=== PATIENT | female | born 1980 | race Caucasian/White ===

== ENCOUNTER 2017-07-30 12:54 | Day surgery (SDC) | payer OTHER ==
[2017-07-27 08:16] VITALS: BMI 19.8
[2017-07-30] MEDS ORDERED: oxyCODONE HCL 5 MG TABLET PO PRN (13:34)
[2017-07-30] MEDS ORDERED: PROMETHAZINE HCL 25 MG/1 ML VIAL IVPUSH PRN (13:34)
[2017-07-30] MEDS ORDERED: ONDANSETRON 4 MG/2 ML VIAL IVPUSH PRN (13:34)
[2017-07-30] MEDS ORDERED: LACTATED RINGERS SOLUTION 1,000 ML IV SCH (13:45)
[2017-07-30] MEDS ORDERED: MIDAZOLAM HCL 2 MG/2 ML SINGLE DOSE VIAL ONE ×2 (14:23)
--- NOTE | 2017-07-30 15:06 | OP ---
Operative Note - Note: Operative Date: 07/30/17 Pre-Operative Diagnosis: R kidney stone Operation: Right ESWL Findings: 7 mm stone in the Right kidney pelvis Post-Operative Diagnosis: Same as Pre-op Surgeon: Abel Mittal Anesthesia: Fractional Operative Report Dictated: Yes
[2017-07-30 16:02] VITALS: TEMP 97.8
[2017-07-30 17:12] VITALS: BP 102/61; PULSE 69
--- NOTE | 2017-07-30 21:37 | OP ---
DATE OF OPERATION: 07/30/2017 PREOPERATIVE DIAGNOSIS: Right renal stone. POSTOPERATIVE DIAGNOSIS: Right renal stone. PROCEDURE: Right extracorporeal shock wave lithotripsy. ATTENDING: Reshma Guerrero MD ANESTHESIA: General. DESCRIPTION OF OPERATION: The patient was brought in the operating room, placed in a supine position on the operating room table. Ultrasonography and fluoroscopy were performed. A 7-mm right renal stone was noted in the renal pelvis. At this point, fractional anesthesia and antibiotics were administered. Extracorporeal shock wave lithotripsy was then performed; 2500 impulses at 20 joules of power were administered to the stone. Excellent fragmentation was noted under real-time ultrasonography and fluoroscopy. There were PVCs noted at a power level of 17. There were some changes seen. The patient will require followup sonogram to evaluate how effective the shockwave lithotripsy was. Patient tolerated the procedure very well. No complications noted. The disposition of the patient was to the recovery room. RESHMA GUERRERO M.D. [id number]
== END 2017-07-30 17:10 | disposition home or self-care (01) ==
LOC: JASU-SURG 12:54
PROVIDERS: ATTEND Urology
PROC: 0TF3XZZ Fragmentation in Right Kidney Pelvis, External Approach (ICD-10-PCS; principal; 2017-07-30 14:00)
DX: N20.0 Calculus of kidney (principal)
CPT/HCPCS: 84703; 94760

== ENCOUNTER 2017-09-10 11:21 | Day surgery (SDC) | payer OTHER ==
[2017-09-06 09:33] VITALS: BMI 19.8
[2017-09-10] MEDS ORDERED: MIDAZOLAM HCL 2 MG/2 ML SINGLE DOSE VIAL ONE (13:36)
--- NOTE | 2017-09-10 13:46 | OP ---
Operative Note - Note: Operative Date: 09/10/17 Pre-Operative Diagnosis: Left kidney stone Operation: Left ESWL Findings: 7 mm lower pole Left kidney stone Post-Operative Diagnosis: Same as Pre-op Anesthesia: Fractional
[2017-09-10 15:58] VITALS: PULSE 60
[2017-09-10] MEDS ORDERED: ONDANSETRON 4 MG/2 ML VIAL ONE ×2 (16:11→18:19)
[2017-09-10] MEDS ORDERED: oxyCODONE HCL 5 MG TABLET PO ONE (16:41)
[2017-09-10] MEDS ORDERED: ONDANSETRON 4 MG/2 ML VIAL IVPUSH ONE ×2 (16:41→18:35)
[2017-09-10] MEDS ORDERED: KETOROLAC TROMETHAMINE 60 MG/2 ML VIAL IM ONE (16:47)
[2017-09-10] MEDS ORDERED: oxyCODONE HCL 5 MG TABLET ONE (16:57)
[2017-09-10 18:22] VITALS: TEMP 97.8
[2017-09-10] MEDS ORDERED: ONDANSETRON 4 MG/2 ML VIAL IVPB ONE (18:25)
[2017-09-10] MEDS ORDERED: METOCLOPRAMIDE HCL INJECTION 10 MG/2 ML VIAL IVPUSH ONE (18:27)
[2017-09-10 18:54] VITALS: BP 106/72
== END 2017-09-10 18:50 | disposition home or self-care (01) ==
LOC: JASU-SURG 11:21
PROVIDERS: ATTEND Urology
PROC: 0TF4XZZ Fragmentation in Left Kidney Pelvis, External Approach (ICD-10-PCS; principal; 2017-09-10 12:30)
DX: N20.0 Calculus of kidney (principal)
CPT/HCPCS: 84703

== ENCOUNTER 2018-06-06 06:25 | Inpatient (IN) | payer OTHER ==
[~2018-06-06 06:25] MED LIST: CITRIC ACID/SODIUM CITRATE 30 ML UNIT-DOSE CUP PO ONE; ELECTROLYTE-148 SOLN 500 ML IV ONE
[2018-06-06] MEDS ORDERED: ELECTROLYTE-148 SOLN 500 ML IV ONE (06:55)
[2018-06-06 06:57] VITALS: BMI 23.4
[2018-06-06] MEDS ORDERED: TUBERCULIN PPD 5 TU/0.1ML SYRINGE (IN PATIENT USE ONLY) ID ONE (07:30)
[2018-06-06] MEDS ORDERED: ONDANSETRON 4 MG/2 ML VIAL IVPUSH PRN (07:54)
[2018-06-06] MEDS ORDERED: morphine SULFATE/Preservative Free 0.5 MG/ML (1cc Syringe) EP ONE (07:54)
[2018-06-06] MEDS ORDERED: morphine SULFATE/Preservative Free 0.5 MG/ML (1cc Syringe) ONE (08:02)
[2018-06-06] MEDS ORDERED: ceFAZolin SODIUM 1 GM VIAL ONE (08:03)
[2018-06-06] MEDS ORDERED: METHYLERGONOVINE MALEATE 0.2 MG/1 ML AMP IM PRN (08:06)
--- NOTE | 2018-06-06 08:12 | HP ---
Past Medical History - Primary Care Physician PCP:: Teena Linton - Admission History Source: Patient Limitations to Obtaining History: No Limitations - Past Medical History ...: 3 ...Para: 1 ...Term: 0 ...: 1 ...Spon : 1 ...Induced : 0 ...Multiple Gestation: 0 ...LMP: 09/04/17 ... Weeks Gestation by Dates: 38.6 ...EDC by Dates: 06/14/18 ...EDC by Sono: 06/09/18 - Past Surgical History Past Surgical History: Yes: Hx Myomectomy: No Hx Transabdominal Cerclage: No - Smoking History Smoking history: Never smoked Have you smoked in the past 12 months: No Aproximately how many cigarettes per day: 3 - Alcohol/Substance Use Hx Alcohol Use: No History of Substance Use: reports: None - Social History History of Recent Travel: No Home Medications - Allergies Allergies/Adverse Reactions: Allergies Allergy/AdvReac Type Severity Reaction Status Date / Time No Known Allergies Allergy Verified 06/06/18 06:44 Physical Exam - Maternity Vital Signs: Vital Signs Temperature 98.1 F 06/06/18 06:45 Pulse Rate 86 06/06/18 06:45 Respiratory Rate 18 06/06/18 06:45 Blood Pressure 117/58 L 06/06/18 06:45 O2 Sat by Pulse Oximetry (%) Constitutional: Yes: Well Nourished, No Distress HENT: Yes: WNL Neck: Yes: WNL Cardiovascular: Yes: WNL Lungs: Clear to auscultation Breast(s): Yes: WNL - Abdominal Exam/OB Fundal Height: 40 Number of Fetuses: Single Presentation: Vertex Category: I Decelerations: None - Vaginal Exam/OB Dilatation (cm): closed Effacement (%): long Amniotic Membrane Status: Intact Presentation: Vertex/Position Station: -1 - Physical Exam Musculoskeletal: Yes: WNL Extremities: Yes: WNL Edema: No Psychiatric: Yes: WNL, Alert, Oriented Hemorrhage Risk Assessment - Risk Factors Medium Risk Factors: Yes: Prior , uterine surgery,or multiple laparotomies Risk Score: 1 Risk Level: Medium Risk Problem List - Problems (1) Previous delivery affecting , antepartum Code(s): O34.219 - MATERNAL CARE FOR UNSP TYPE SCAR FROM PREVIOUS DEL (2) 39 weeks gestation of Code(s): Z3A.39 - 39 WEEKS GESTATION OF Assessment/Plan iup at 39 Previous Section Plan repeat Section
[2018-06-06] MEDS ORDERED: ELECTROLYTE-148 SOLN 1,000 ML IV SCH (08:15)
--- NOTE | 2018-06-06 08:16 | OP ---
Operative Note - Note: Operative Date: 06/06/18 Pre-Operative Diagnosis: Previous Section. IUP at 39 week Post-Operative Diagnosis: Same as Pre-op Surgeon: Teena Linton Anesthesia: Spinal Operative Report Dictated: Yes
[2018-06-06] MEDS ORDERED: OXYTOCIN 10 UNITS/ML VIAL ONE (08:34)
[2018-06-06] MEDS ORDERED: OXYTOCIN 20 UNITS in 0.9% NS 20 UNIT/1,000 ML INFUS.BAG IV ONE ×2 (08:52→10:25)
[2018-06-06] MEDS ORDERED: KETOROLAC TROMETHAMINE 30 MG/1 ML VIAL ONE (09:02)
[2018-06-06 09:22] LABS: VENOUS PC02 39.6 mmHg (38-52); VENOUS PH 7.35 (7.32-7.42)
--- NOTE | 2018-06-06 09:33 | OP ---
DATE OF OPERATION: 06/06/2018 PREOPERATIVE DIAGNOSIS: Previous section, intrauterine at 39 weeks. OPERATION: Repeat section. POSTOPERATIVE DIAGNOSIS: Previous section, intrauterine at 39 weeks and live female infant. SURGEON: Teena Linton MD PROPERTY ECONOMIST: KACEY Camacho; MD unavailable. ANESTHESIA: Spinal. PROCEDURE: Patient was taken to the operating room, placed in supine position, and prepped and draped in the usual sterile fashion. A timeout was performed in accordance with hospital regulation. A Pfannenstiel skin incision was made through the patient's previous scar. Cautery was then used to go through layers of abdominal wall to the level of the fascia. Fascia was cut in the midline, and cautery was then used to open the fascia in smiling fashion. Cindy was then used to bluntly and sharply dissect the rectus muscle off the fascia. Muscles split in the midline. Peritoneal cavity was then entered and carried upward and downward. Bladder retractor was then placed. Scalpel was then used to make a low transverse uterine incision. Incision was carried upwards using bandage scissors. A live female infant was delivered in LOT position. Nose and mouth suctioned. Shoulders were delivered without difficulty. Cord was clamped and cut. Delayed cord clamping. Blood sampling and cord pH sampling all done. Infant was handed to playback operator. Uterus was exteriorized. Placenta was manually extracted from the uterus. Uterine incision was closed using 0 Biosyn suture, first layer continuous and locking, second layer imbricating the first layer. Hemostasis was achieved using [id number] sutures. Uterus was then interiorized. Abdominal cavity cleaned with clean lap pads. Uterine incision was noted to be hemostatic. Tubes and ovaries were noted to be normal. Peritoneum was closed using 0 Biosyn suture. Fascia was then closed using 0 Vicryl suture in 2 parts. Subcutaneous was then approximated using 0 Biosyn suture. Skin was then closed using 3-0 Vicryl in subcuticular fashion. Wound was washed and dressed. Patient had tolerated the procedure well. ESTIMATED BLOOD LOSS: 500 mL. Eleni [id number]
[2018-06-06] MEDS: OXYTOCIN 20 UNITS in 0.9% NS 20 UNIT/1,000 ML INFUS.BAG IV SCH ×2 (10:30→19:41)
[2018-06-06] MEDS: IBUPROFEN 800 MG/8 ML IJ IVPB PRN ×2 (13:05→20:38)
[2018-06-07] MEDS: IBUPROFEN 800 MG/8 ML IJ IVPB PRN (03:56)
[2018-06-07 08:22] LABS: BASO % 0.3 % (0-2.0); EOS % 0.5 % (0-4.5); HEMATOCRIT 27.9 % (32.4-45.2); HEMOGLOBIN 9.5 GM/dL (10.7-15.3); LYMPH % 10.3 % (8-40); MCH 31.8 pg (25.7-33.7); MCHC 33.9 g/dl (32.0-36.0); MEAN CELL VOLUME 93.7 fl (80-96); MEAN PLT VOLUME 9.2 fl (7.5-11.1); MONO % 5.3 % (3.8-10.2); NEUT % 83.6 % (42.8-82.8); PLATELET COUNT 176 K/MM3 (134-434); RBC 2.98 M/mm3 (3.60-5.2); RDW 14.4 % (11.6-15.6); WHITE BLOOD COUNT 9.1 K/mm3 (4.0-10.0)
[2018-06-07] MEDS: SIMETHICONE 80 MG TAB.CHEW (FP) PO PRN ×3 (08:52→21:06)
[2018-06-07] MEDS: oxyCODONE HCL 5 MG TABLET PO PRN ×3 (08:52→21:06)
[2018-06-07] MEDS: ACETAMINOPHEN 325 MG TABLET (FP) PO PRN ×2 (08:53→16:27)
--- NOTE | 2018-06-07 09:10 | PN ---
Post Progress Note - Subjective Subjective: Pt seen/evaluated. Doing well, having some incisional pain otherwise no complaints. Hinson discontinued this a.m. no void yet, no flatus. no n/v, dipika clears Type of Delivery: Repeat C/S Vital Signs: Vital Signs Temperature 98.1 F 06/07/18 06:00 Pulse Rate 67 06/07/18 06:00 Respiratory Rate 18 06/07/18 06:00 Blood Pressure 110/76 06/07/18 06:00 O2 Sat by Pulse Oximetry (%) 100 06/06/18 10:30 Breast Exam: Yes: Soft Uterus: Yes: Fundus Firm Incision: Yes: Dressing dry and intact Abdomen/GI: Yes: Abdomen soft, Tolerating PO Lochia: Yes: Rubra Lochia, amount: Small Extremities: Yes: Calves non-tender. No: Edema Perineum: Yes: Intact Activity: Ambulating - Labs Labs: CBC WBC 9.1 K/mm3 (4.0-10.0) 06/07/18 07:52 RBC 2.98 M/mm3 (3.60-5.2) L 06/07/18 07:52 Hgb 9.5 GM/dL (10.7-15.3) L 06/07/18 07:52 Hct 27.9 % (32.4-45.2) L 06/07/18 07:52 MCV 93.7 fl (80-96) 06/07/18 07:52 MCH 31.8 pg (25.7-33.7) 06/07/18 07:52 MCHC 33.9 g/dl (32.0-36.0) 06/07/18 07:52 RDW 14.4 % (11.6-15.6) 06/07/18 07:52 Plt Count 176 K/MM3 (134-434) 06/07/18 07:52 MPV 9.2 fl (7.5-11.1) 06/07/18 07:52 Absolute Neuts (auto) 7.6 K/mm3 (1.5-8.0) 06/07/18 07:52 Neutrophils % 83.6 % (42.8-82.8) H 06/07/18 07:52 Lymphocytes % 10.3 % (8-40) 06/07/18 07:52 Monocytes % 5.3 % (3.8-10.2) 06/07/18 07:52 Eosinophils % 0.5 % (0-4.5) 06/07/18 07:52 Basophils % 0.3 % (0-2.0) 06/07/18 07:52 Nucleated RBC % 0 % (0-0) 06/07/18 07:52 Problem List - Problems (1) delivery delivered Code(s): O82 - ENCOUNTER FOR DELIVERY WITHOUT INDICATION Assessment/Plan POD#1 s/p repeat c section regular diet as tolerated ambulation po pain meds Hgb 9.5, continue vitamins routine care
[2018-06-07] MEDS: PRENATAL VITAMINS W/ FOLIC ACID TABLET (FP) PO SCH (11:00)
[2018-06-07] MEDS: ENOXAPARIN NA (PORCINE) 40 MG/0.4 ML DISP.SYRIN SQ SCH (11:00)
--- NOTE | 2018-06-07 13:28 | PN ---
Progress Note (short form) - Note Progress Note: POD #1 - s/p under spinal with duramorph. VSS. Pt. doing well, sitting up comfortably in chair having lunch. No complaints. Good pain control. No apparent anesthetic complications noted. Continue current care.
[2018-06-07] MEDS: IBUPROFEN 600 MG TABLET (FP) PO PRN (21:07)
[2018-06-08] MEDS: SIMETHICONE 80 MG TAB.CHEW (FP) PO PRN ×4 (01:21→16:33)
[2018-06-08] MEDS: oxyCODONE HCL 5 MG TABLET PO PRN ×5 (01:21→23:57)
[2018-06-08] MEDS: IBUPROFEN 600 MG TABLET (FP) PO PRN ×5 (01:21→23:56)
[2018-06-08] MEDS: ENOXAPARIN NA (PORCINE) 40 MG/0.4 ML DISP.SYRIN SQ SCH (09:18)
[2018-06-08] MEDS: PRENATAL VITAMINS W/ FOLIC ACID TABLET (FP) PO SCH (09:18)
[2018-06-08] MEDS ORDERED: DIPHTH,PERTUSS(ACELL),TET 0.5 ML DISP.SYRIN IM ONE (10:00)
[2018-06-08] MEDS ORDERED: FLU VACCINE QUAD 60 MCG/0.5 ML (MDV 18-19) IM ONE (10:00)
[2018-06-08] MEDS: BISACODYL 10 MG SUPP.RECT RC PRN ×2 (12:19→23:49)
[2018-06-08] MEDS ORDERED: ACETAMINOPHEN 325 MG TABLET (FP) ONE (16:31)
[2018-06-08] MEDS ORDERED: ACETAMINOPHEN 325 MG TABLET (FP) PO PRN (16:33)
--- NOTE | 2018-06-08 20:57 | DS ---
Physical Exam-PROVISIONING ANALYST Vital Signs: Vital Signs Temperature 98.4 F 06/08/18 08:45 Pulse Rate 70 06/08/18 08:45 Respiratory Rate 18 06/08/18 08:45 Blood Pressure 111/60 06/08/18 08:45 O2 Sat by Pulse Oximetry (%) 100 06/06/18 10:30 Labs: CBC, BMP 06/07/18 07:52 Delivery - Delivery Type of Anesthesia: Spinal Episiotomy/Laceration: None EBL (cc): 500 Delivery, Single - Stages of Labor Date of Delivery: 06/06/18 Time of Delivery: 08:34 Time Placenta Delivered: 08:35 - Condition of Hvac Design Mechanical Engineer/Gate Keeper Present: Yes Name: Mary Figueroa Infant Gender: Female Weight: 6 lb 5 oz Position: Left, OT Total Hours ROM (Hrs/Mins): 0/2 - 1 Minute Total Score: 9 5 Minutes Total Score: 9 - Feeding Plan Initial Plan: Exclusive throughout hospitalization Discharge Summary Reason For Visit: SCHEDULED C SECTION Current Active Problems 39 weeks gestation of (Acute) delivery delivered (Acute) Previous delivery affecting , antepartum (Acute) Procedures: Principal: repeat c section Hospital Course: Pt admitted on 06/06/18, underwent scheduled uncomplicated repeat c section. Pt had uncomplicated post recovery and was discharged home on post op day 3. - Instructions Diet, Activity, Other Instructions: Physical activity Resume your normal everyday activity as tolerated but no heavy lifting or strenuous exercise until seen by your surgeon. You may walk unlimited amounts of and climb stairs. You may resume driving the car when you feel safe and comfortable behind the wheel. No sexual activity as instructed. Wound care If you have tapes on the skin leave them in place. They will peel off in the next 7 to 10 days. Do Not Peel them off. You may shower the day after surgery. If there are tapes present on the skin, you may shower over them. Diet There are no dietary restrictions. Eat healthy, high-fiber foods. Drink 6 to 8 glasses of liquid each day. This will assist in keeping your bowels regular. Pain management You may take Tylenol or Ibuprofen (for example, Motrin, Advil etc.) for mild pain. If any prescription medication is sent to your pharmacy, please take as directed for moderate to severe pain. Call MD for any of the following: Severe pain not relieved by medication Fever of 101 or higher Excessive bleeding or drainage on dressing Inability to urinate Referrals: Teena Linton MD [Staff Physician] - 1 Week Disposition: HOME
[2018-06-09] MEDS: IBUPROFEN 600 MG TABLET (FP) PO PRN (07:36)
[2018-06-09] MEDS: oxyCODONE HCL 5 MG TABLET PO PRN (07:38)
[2018-06-09] MEDS: SIMETHICONE 80 MG TAB.CHEW (FP) PO PRN (07:38)
[2018-06-09 08:38] VITALS: BP 105/64; PULSE 67; TEMP 98.4
[2018-06-09] MEDS: ENOXAPARIN NA (PORCINE) 40 MG/0.4 ML DISP.SYRIN SQ SCH (09:26)
[2018-06-09] MEDS: PRENATAL VITAMINS W/ FOLIC ACID TABLET (FP) PO SCH (09:26)
[2018-06-09 09:27] LABS: BASO % 0.3 % (0-2.0); EOS % 3.1 % (0-4.5); HEMATOCRIT 29.8 % (32.4-45.2); HEMOGLOBIN 10.2 GM/dL (10.7-15.3); LYMPH % 13.5 % (8-40); MCH 31.8 pg (25.7-33.7); MCHC 34.1 g/dl (32.0-36.0); MEAN CELL VOLUME 93.3 fl (80-96); MONO % 6.4 % (3.8-10.2); NEUT % 76.7 % (42.8-82.8); PLATELET COUNT 240 K/MM3 (134-434); RDW 14.4 % (11.6-15.6); WHITE BLOOD COUNT 6.6 K/mm3 (4.0-10.0)
--- NOTE | 2018-06-17 13:29 | PATH ---
Surgical Pathology Report Patient Name: ANKITA RIOS Med. Rec. 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 Specimen(s) Received PLACENTA Clinical History , 39.4 weeks, advanced maternal age Final Diagnosis PLACENTA, SECTION: 343 G THIRD TRIMESTER PLACENTA WITH TRIVASCULAR UMBILICAL CORD AND UNREMARKABLE PLACENTAL MEMBRANES. Electronically Signed Elif Noel M.D. Gross Description The specimen is received fresh labeled placenta and is a 343 gram, 15.0 x 13.0 x 2.8 cm. placenta with attached membranes and umbilical cord. The attached membranes are dorado, translucent with focal opacities and insert marginally. The umbilical cord measures 5 cm. in length and averages 1.2 cm. in diameter. The cord inserts eccentrically, 4.5 cm. to the nearest margin. No true knots or strictures are identified. Cut surface of the umbilical cord reveals 3 vessels. The surface is chavez-blue with minimal fibrin deposition and appropriate caliber vessels. The maternal surface is red-brown and intact. Sectioning reveals red-brown, spongy parenchyma. No lesions are identified. Manager Support Services sections are submitted in three cassettes as follows: 1- membrane rolls and umbilical cord; 2-3- full thickness sections of placenta. 06/14/201806/14/2018
== END 2018-06-09 12:52 | disposition home or self-care (01) | DRG 540 ==
LOC: JLDR 06:25 → J3W 11:00
PROVIDERS: ADMIT Obstetrics & Gynecology; ATTEND Obstetrics & Gynecology
PROC: 10D00Z1 Extraction of Products of Conception, Low, Open Approach (ICD-10-PCS; principal; 2018-06-06)
DX: O34.219 Maternal care for unspecified type scar from previous cesarean delivery (principal); Z3A.39 39 weeks gestation of pregnancy; Z37.0 Single live birth
CPT/HCPCS: 36415; 82803; 85025; 88307-TC; 90686; 90715; G0008

== ENCOUNTER 2019-06-02 08:05 | Inpatient (IN) | payer OTHER ==
[2019-06-02] MEDS ORDERED: CITRIC ACID/SODIUM CITRATE 30 ML UNIT-DOSE CUP PO ONE (08:45)
[2019-06-02] MEDS ORDERED: ELECTROLYTE-148 SOLN 500 ML IV ONE (08:45)
[2019-06-02 08:59] VITALS: BMI 23.4
[2019-06-02] MEDS ORDERED: ELECTROLYTE-148 SOLN 500 ML IV SCH (09:15)
[2019-06-02] MEDS ORDERED: diphenhydrAMINE HCL 25 MG CAPSULE (FP) PO PRN (09:28)
[2019-06-02] MEDS ORDERED: METHYLERGONOVINE MALEATE 0.2 MG/1 ML AMP IM PRN (09:28)
[2019-06-02] MEDS ORDERED: BENZOCAINE 28 GM HEMORRHOIDAL OINTMENT PR PRN (09:28)
[2019-06-02] MEDS ORDERED: BENZOCAINE 20% 57 GM BOTTLE TP PRN (09:28)
[2019-06-02] MEDS ORDERED: WITCH HAZEL 50% (TUCKS) 40 PAD/JAR PAD TP PRN (09:28)
[2019-06-02] MEDS ORDERED: morphine SULFATE/PF 0.5 MG/ML (2cc Syringe - QUVA) ONE (09:29)
[2019-06-02] MEDS ORDERED: morphine SULFATE/PF 0.5 MG/ML (2cc Syringe - QUVA) EP ONE (09:43)
[2019-06-02] MEDS ORDERED: ceFAZolin SODIUM 1 GM VIAL ONE (09:51)
[2019-06-02] MEDS ORDERED: KETOROLAC TROMETHAMINE 30 MG/1 ML VIAL ONE (09:51)
[2019-06-02] MEDS ORDERED: OXYTOCIN 10 UNITS/ML VIAL ONE (09:51)
[2019-06-02] MEDS ORDERED: PHENYLEPHRINE HCL 10 MG/1 ML SINGLE DOSE VIAL ONE (09:51)
--- NOTE | 2019-06-02 10:35 | HP ---
Past Medical History - Primary Care Physician PCP:: Teena Linton - Admission Chief Complaint: Previous Section History of Present Illness: 39 yo G P EDC EGA for repeat CS for repeat CS History Source: Patient Limitations to Obtaining History: No Limitations - Past Medical History ...: 5 ...Para: 2 ...Term: 1 ...: 1 ...Spon : 2 ...Induced : 0 ...Multiple Gestation: 0 ...EDC by Sono: 06/09/19 - Past Surgical History Past Surgical History: Yes: Hx Myomectomy: No Hx Transabdominal Cerclage: No - Smoking History Smoking history: Never smoked Have you smoked in the past 12 months: No Aproximately how many cigarettes per day: 3 - Alcohol/Substance Use Hx Alcohol Use: No History of Substance Use: reports: None - Social History History of Recent Travel: No Home Medications - Allergies Allergies/Adverse Reactions: Allergies Allergy/AdvReac Type Severity Reaction Status Date / Time No Known Allergies Allergy Verified 06/06/18 06:44 Physical Exam - Maternity Vital Signs: Vital Signs Temperature 98.6 F 06/02/19 08:30 Pulse Rate 60 06/02/19 08:30 Respiratory Rate 18 06/02/19 08:30 Blood Pressure 94/43 L 06/02/19 08:30 O2 Sat by Pulse Oximetry (%) Constitutional: Yes: Well Nourished, No Distress Cardiovascular: Yes: WNL Breast(s): Yes: WNL - Abdominal Exam/OB Fundal Height: 39 Number of Fetuses: Single Presentation: Vertex Contractions: No Heart Rate Location: [facility] Category: I Accelerations: Non-Uniform - Vaginal Exam/OB Dilatation (cm): closed Amniotic Membrane Status: Intact Presentation: Vertex/Position - Physical Exam Musculoskeletal: Yes: WNL Extremities: Yes: WNL Edema: No Hemorrhage Risk Assessment - Risk Factors Medium Risk Factors: Yes: Prior , uterine surgery,or multiple laparotomies Risk Score: 1 Risk Level: Medium Risk Problem List - Problems (1) 39 weeks gestation of Problems reviewed: Yes Code(s): Z3A.39 - 39 WEEKS GESTATION OF (2) Previous delivery affecting , antepartum Problems reviewed: Yes Code(s): O34.219 - MATERNAL CARE FOR UNSP TYPE SCAR FROM PREVIOUS DEL Assessment/Plan IUP at 39 week previous Section Cat 1 Plan Repeat Section
--- NOTE | 2019-06-02 10:36 | OP ---
Operative Note - Note: Operative Date: 06/02/19 Pre-Operative Diagnosis: Previous Cearean Section. IUP at 39 week Operation: Repeat low transverse Section Findings: Live male infant Nuchal x 1 Post-Operative Diagnosis: Same as Pre-op Surgeon: Teena Linton Automatic Lump Making Machine Tender: Chepe Jerome Anesthesia: Spinal Estimated Blood Loss (mls): 600 Operative Report Dictated: Yes
[2019-06-02] MEDS ORDERED: ONDANSETRON 4 MG/2 ML VIAL IVPUSH PRN (10:43)
[2019-06-02] MEDS ORDERED: ACETAMINOPHEN 1000 MG/100 ML VIAL (NON FORMULARY) IVPB ONE (10:46)
[2019-06-02] MEDS ORDERED: OXYTOCIN 20 UNITS in 0.9% NS 20 UNIT/1,000 ML INFUS.BAG IV ONE (10:54)
[2019-06-02] MEDS: OXYTOCIN 20 UNITS in 0.9% NS 20 UNIT/1,000 ML INFUS.BAG IV SCH (11:00)
--- NOTE | 2019-06-02 16:46 | OP ---
DATE OF OPERATION: 06/02/2019 PREOPERATIVE DIAGNOSIS: Previous section, intrauterine at 39 weeks. OPERATION: Repeat low transverse section. POSTOPERATIVE DIAGNOSIS: Previous section, intrauterine at 39 weeks, live male infant, nuchal cord x1. SURGEON: Crys Linton MD ELECTRONICS TESTER: KACEY Camacho. unavailable. ANESTHESIA: Spinal. ANESTHESIOLOGIST: Ld Campbell MD PROCEDURE: Patient was taken to the operating room, placed in supine position, prepped and draped in usual sterile fashion. Time-out was performed in accordance with hospital regulation. Pfannenstiel skin incision was made through the patient's previous scar. Cautery was then used to go through layers of abdominal wall to the level of the fascia. Fascia was cut in the midline, and cautery was then used to open the fascia in smiling fashion. Kochers were then used to bluntly, sharply dissect the rectus muscle off the fascia. Muscle was split in the midline, and peritoneal cavity was then entered and carried upward and downward. Bladder retractor was then placed. Vesicouterine reflection was then taken down. Scalpel was then used to make a low transverse uterine incision. Incision was carried upward using bandage scissors. A live male was delivered in OT position. Nuchal cord x1 was reduced. Cord was clamped and cut. Cord blood obtained. Placenta was manually extracted from the uterus. Uterus was exteriorized and cleaned with clean lap pads. Uterine incision then closed using 0 Biosyn suture 1st layer continuous and locking, 2nd layer imbricating the 1st layer. Hemostasis was achieved. Tubes and ovaries were noted to be normal. Uterus was then interiorized. Abdominal cavity was cleaned with clean lap pads. Peritoneum was then closed using 0 Biosyn suture. Muscle was approximated in the midline using 0 Biosyn suture. Fascia was then closed in 2 parts using 0 Vicryl suture. Subcutaneous was closed using 0 Biosyn suture and then skin was then closed using 3-0 Vicryl in a subcuticular fashion. Wound was washed and dressed. Patient tolerated procedure well and was taken to recovery room in stable condition. CRYS LINTON M.D. [id number]
[2019-06-02 17:58] LABS: BASO % 0.2 % (0-2.0); EOS % 0.7 % (0-4.5); HEMATOCRIT 24.6 % (32.4-45.2); HEMOGLOBIN 7.9 GM/dL (10.7-15.3); LYMPH % 12.2 % (8-40); MCH 28.2 pg (25.7-33.7); MCHC 32.3 g/dl (32.0-36.0); MEAN CELL VOLUME 87.3 fl (80-96); MEAN PLT VOLUME 9.1 fl (7.5-11.1); MONO % 4.3 % (3.8-10.2); NEUT % 82.6 % (42.8-82.8); PLATELET COUNT 223 K/MM3 (134-434); RBC 2.81 M/mm3 (3.60-5.2); RDW 14.7 % (11.6-15.6); WHITE BLOOD COUNT 9.4 K/mm3 (4.0-10.0)
[2019-06-02] MEDS: IBUPROFEN 800 MG/8 ML IJ IVPB PRN (22:08)
[2019-06-03] MEDS: IBUPROFEN 800 MG/8 ML IJ IVPB PRN (06:03)
[2019-06-03 08:25] LABS: HEMATOCRIT 24.2 % (32.4-45.2); HEMOGLOBIN 7.8 GM/dL (10.7-15.3); MCH 28.4 pg (25.7-33.7); MCHC 32.2 g/dl (32.0-36.0); MEAN CELL VOLUME 88.3 fl (80-96); MEAN PLT VOLUME 9.1 fl (7.5-11.1); PLATELET COUNT 227 K/MM3 (134-434); RBC 2.75 M/mm3 (3.60-5.2); WHITE BLOOD COUNT 9.3 K/mm3 (4.0-10.0)
--- NOTE | 2019-06-03 09:17 | PN ---
HC Provider Note Provider Note: Anesthesia Post Op Note Pt s/p spinal for repeat c/sect Pt awake alert ambulating well, no urinary retention Denies h/a, n/v moderate pain control responding well to medications VSS no apparent anesthesia complications Shalini Campbell.
[2019-06-03] MEDS ORDERED: BISACODYL 10 MG SUPP.RECT PR PRN (09:28)
[2019-06-03] MEDS ORDERED: DIPHTH,PERTUSS(ACELL),TET 0.5 ML DISP.SYRIN IM ONE (10:00)
[2019-06-03] MEDS ORDERED: FLU VACCINE QUAD 60 MCG/0.5 ML (MDV 19-20) IM ONE (10:00)
[2019-06-03] MEDS ORDERED: FLU VACC QS2019-20(6MOS UP)/PF 60 MCG/0.5 ML SYRINGE IM ONE (10:00)
[2019-06-03] MEDS: IBUPROFEN 600 MG TABLET (FP) PO PRN ×2 (11:36→17:27)
[2019-06-03] MEDS: SIMETHICONE 80 MG TAB.CHEW (FP) PO PRN ×2 (11:36→17:27)
[2019-06-03] MEDS: oxyCODONE HCL 5 MG TABLET PO PRN ×2 (11:37→17:29)
--- NOTE | 2019-06-03 20:23 | PN ---
Post Progress Note - Subjective Subjective: 39 yo status post repeat , seen and evaluated. Doing well, she's ambulating. Post Day: 1 Type of Delivery: Repeat C/S Vital Signs: Vital Signs Temperature 97.9 F 06/03/19 09:22 Pulse Rate 61 06/03/19 09:22 Respiratory Rate 18 06/03/19 09:00 Blood Pressure 102/58 L 06/03/19 09:22 O2 Sat by Pulse Oximetry (%) 99 06/02/19 13:11 Breast Exam: Yes: Soft Uterus: Yes: Fundus Firm Incision: Yes: Dressing dry and intact Abdomen/GI: Yes: Abdomen soft, Tolerating PO Lochia: Yes: Rubra Lochia, amount: Small Extremities: Yes: Calves non-tender Activity: Ambulating - Labs Labs: CBC WBC 9.3 K/mm3 (4.0-10.0) 06/03/19 07:27 RBC 2.75 M/mm3 (3.60-5.2) L 06/03/19 07:27 Hgb 7.8 GM/dL (10.7-15.3) L 06/03/19 07:27 Hct 24.2 % (32.4-45.2) L 06/03/19 07:27 MCV 88.3 fl (80-96) 06/03/19 07:27 MCH 28.4 pg (25.7-33.7) 06/03/19 07:27 MCHC 32.2 g/dl (32.0-36.0) 06/03/19 07:27 RDW 15.0 % (11.6-15.6) 06/03/19 07:27 Plt Count 227 K/MM3 (134-434) 06/03/19 07:27 MPV 9.1 fl (7.5-11.1) 06/03/19 07:27 Absolute Neuts (auto) 7.7 K/mm3 (1.5-8.0) 06/02/19 17:00 Neutrophils % 82.6 % (42.8-82.8) 06/02/19 17:00 Lymphocytes % 12.2 % (8-40) D 06/02/19 17:00 Monocytes % 4.3 % (3.8-10.2) 06/02/19 17:00 Eosinophils % 0.7 % (0-4.5) 06/02/19 17:00 Basophils % 0.2 % (0-2.0) 06/02/19 17:00 Nucleated RBC % 0 % (0-0) 06/02/19 17:00 Assessment/Plan Status post repeat Ambulation Analgesia as needed Continue routine post op care
[2019-06-04] MEDS: SIMETHICONE 80 MG TAB.CHEW (FP) PO PRN ×4 (04:59→20:19)
[2019-06-04] MEDS: oxyCODONE HCL 5 MG TABLET PO PRN ×3 (04:59→20:20)
[2019-06-04] MEDS: ACETAMINOPHEN 325 MG TABLET (FP) PO PRN ×2 (05:00→10:02)
--- NOTE | 2019-06-04 07:17 | PN ---
Post Progress Note - Subjective Subjective: 39 yo Para 3 status post repeat , seen and evaluated. She's doing well. Post Day: 2 Type of Delivery: Repeat C/S Vital Signs: Vital Signs Temperature 98.3 F 06/03/19 22:00 Pulse Rate 62 06/03/19 22:00 Respiratory Rate 20 06/03/19 22:00 Blood Pressure 106/62 06/03/19 22:00 O2 Sat by Pulse Oximetry (%) 99 06/02/19 13:11 Breast Exam: Yes: Soft Incision: Yes: Dressing dry and intact Abdomen/GI: Yes: Abdomen soft Lochia: Yes: Rubra Lochia, amount: Small Extremities: Yes: Calves non-tender Activity: Ambulating - Labs Labs: CBC WBC 9.3 K/mm3 (4.0-10.0) 06/03/19 07:27 RBC 2.75 M/mm3 (3.60-5.2) L 06/03/19 07:27 Hgb 7.8 GM/dL (10.7-15.3) L 06/03/19 07:27 Hct 24.2 % (32.4-45.2) L 06/03/19 07:27 MCV 88.3 fl (80-96) 06/03/19 07:27 MCH 28.4 pg (25.7-33.7) 06/03/19 07:27 MCHC 32.2 g/dl (32.0-36.0) 06/03/19 07:27 RDW 15.0 % (11.6-15.6) 06/03/19 07:27 Plt Count 227 K/MM3 (134-434) 06/03/19 07:27 MPV 9.1 fl (7.5-11.1) 06/03/19 07:27 Absolute Neuts (auto) 7.7 K/mm3 (1.5-8.0) 06/02/19 17:00 Neutrophils % 82.6 % (42.8-82.8) 06/02/19 17:00 Lymphocytes % 12.2 % (8-40) D 06/02/19 17:00 Monocytes % 4.3 % (3.8-10.2) 06/02/19 17:00 Eosinophils % 0.7 % (0-4.5) 06/02/19 17:00 Basophils % 0.2 % (0-2.0) 06/02/19 17:00 Nucleated RBC % 0 % (0-0) 06/02/19 17:00 Assessment/Plan Status post repeat Ambulation Analgesia as needed Continue routine post op care
[2019-06-04] MEDS: IBUPROFEN 600 MG TABLET (FP) PO PRN ×3 (10:02→20:19)
--- NOTE | 2019-06-04 17:30 | PATH ---
Surgical Pathology Report Patient Name: ANKITA RIOS Med. Rec. 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 Specimen(s) Received PLACENTA Clinical History , 39 weeks, anemia Previous x2 Final Diagnosis PLACENTA: THIRD TRIMESTER PLACENTA. TRIVASCULAR CORD. MEMBRANES WITH NO DIAGNOSTIC ABNORMALITIES. Electronically Signed Cely Mirza M.D. Gross Description The specimen is received fresh labeled placenta and is a 304 gram, 13.0 x 12.5 x 2.7 cm. placenta with attached membranes and umbilical cord. The attached membranes are dorado, translucent with focal opacities and insert marginally. The umbilical cord measures 12 cm. in length and averages 1.1 cm. in diameter. The cord inserts eccentrically, 2.5 cm. to the nearest margin. No true knots or strictures are identified. Cut surface of the umbilical cord reveals 3 vessels. The surface is chavez-blue with minimal fibrin deposition and appropriate caliber vessels. The maternal surface is red-brown and intact. Sectioning reveals red-brown, spongy parenchyma. No lesions are identified. Blade Boner sections are submitted in three cassettes as follows: 1- membrane rolls and umbilical cord; 2-3- full thickness sections of placenta. /06/03/2019 [facility]/06/03/2019
[2019-06-04] MEDS ORDERED: SENNOSIDES/DOCUSATE COMBO (SENNA PLUS) TABLET (UD) PO PRN (22:00)
[2019-06-05] MEDS: oxyCODONE HCL 5 MG TABLET PO PRN ×5 (00:46→22:08)
[2019-06-05] MEDS: IBUPROFEN 600 MG TABLET (FP) PO PRN ×3 (00:46→22:07)
[2019-06-05] MEDS: SIMETHICONE 80 MG TAB.CHEW (FP) PO PRN ×4 (00:47→22:07)
[2019-06-05 08:23] LABS: HEMATOCRIT 23.5 % (32.4-45.2); HEMOGLOBIN 7.6 GM/dL (10.7-15.3); MCH 28.5 pg (25.7-33.7); MCHC 32.4 g/dl (32.0-36.0); MEAN CELL VOLUME 87.8 fl (80-96); MEAN PLT VOLUME 8.8 fl (7.5-11.1); PLATELET COUNT 225 K/MM3 (134-434); RBC 2.67 M/mm3 (3.60-5.2); RDW 15.1 % (11.6-15.6); WHITE BLOOD COUNT 6.1 K/mm3 (4.0-10.0)
--- NOTE | 2019-06-05 09:12 | PN ---
Post Note - Post Date of Delivery: 06/02/19 Vital Signs: Vital Signs - 24 hr 06/04/19 06/04/19 06/05/19 10:00 22:00 08:42 Temperature 98.2 F 98.7 F 98.2 F Pulse Rate 73 84 66 Respiratory 18 20 20 Rate Blood Pressure 119/76 119/58 L 105/54 L Labs: Laboratory Results - last 24 hr 06/05/19 07:50 WBC 6.1 RBC 2.67 L Hgb 7.6 L Hct 23.5 L MCV 87.8 MCH 28.5 MCHC 32.4 RDW 15.1 Plt Count 225 MPV 8.8 - Subjective Subjective: No Complaints, Ambulating, Voiding, Tolerating Diet, No Nausea or vomiting, Scant lochia - Objective Afebrile: Yes Breast: Not engorged Abdomen: Soft, Non-tender, Other (incision intact no drainage) Uterus: Fundus firm Vagina: Scant lochia Extremities: Non-tender - Assessment/Plan (3) delivery delivered Assessment: Other (POD3 Anemia) Plan: Routine Care, Other (feosol BID colace)
[2019-06-05] MEDS: ACETAMINOPHEN 325 MG TABLET (FP) PO PRN ×3 (09:13→22:08)
[2019-06-05] MEDS: DOCUSATE SODIUM 100 MG CAPSULE (FP) PO SCH ×2 (09:47→22:07)
[2019-06-05] MEDS: FERROUS SO4 300 MG/5 ML ORAL SOLN UNIT DOSE CUPS PO SCH ×2 (13:11→18:16)
[2019-06-05] MEDS: OXYTOCIN 20 UNITS in 0.9% NS 20 UNIT/1,000 ML INFUS.BAG IV SCH ×2 (20:07→20:08)
[2019-06-05] MEDS: LACTATED RINGERS SOLUTION 1,000 ML IV SCH ×2 (20:07→20:08)
[2019-06-05] MEDS: ELECTROLYTE-148 SOLN 1,000 ML IV SCH ×2 (20:07→20:08)
[2019-06-06] MEDS: IBUPROFEN 600 MG TABLET (FP) PO PRN (10:14)
[2019-06-06] MEDS: DOCUSATE SODIUM 100 MG CAPSULE (FP) PO SCH (10:19)
[2019-06-06 10:28] VITALS: BP 110/50; PULSE 69; TEMP 98.3
[2019-06-06] MEDS: FERROUS SO4 300 MG/5 ML ORAL SOLN UNIT DOSE CUPS PO SCH (11:14)
== END 2019-06-06 11:20 | disposition home or self-care (01) | DRG 540 ==
LOC: JLDR 08:05 → J3W 12:46
PROVIDERS: ADMIT Obstetrics & Gynecology; ATTEND Obstetrics & Gynecology
PROC: 10D00Z1 Extraction of Products of Conception, Low, Open Approach (ICD-10-PCS; principal; 2019-06-02)
DX: O34.211 Maternal care for low transverse scar from previous cesarean delivery (principal); O69.81X0 Labor and delivery complicated by cord around neck, without compression, not applicable or unspecified; Z3A.39 39 weeks gestation of pregnancy; Z37.0 Single live birth
CPT/HCPCS: 36415; 36600; 82803; 85025; 85027; 88307-TC; 90686; 90715; G0008; J0131

== ENCOUNTER 2022-02-23 04:10 | Day surgery (SDC) | payer OTHER ==
[2022-02-22 13:05] VITALS: BMI 21.0
[2022-02-23] MEDS ORDERED: LIDOCAINE HCL 2% JELLY 10 ML CARTRIDGE ONE (11:31)
[2022-02-23] MEDS ORDERED: ACETAMINOPHEN 1000 MG/100 ML BAG IVPB ONE (11:52)
[2022-02-23] MEDS ORDERED: ACETAMINOPHEN INJECTION 100 ML IVPB ONE (12:01)
[2022-02-23] MEDS ORDERED: ONDANSETRON 4 MG/2 ML VIAL IVPUSH ONE (13:05)
[2022-02-23] MEDS ORDERED: DEXAMETHASONE SOD PHOSPHATE 4 MG/1 ML VIAL IVPUSH ONE (13:05)
[2022-02-23] MEDS ORDERED: ONDANSETRON 4 MG/2 ML VIAL ONE (13:11)
[2022-02-23 14:47] VITALS: BP 108/70; PULSE 70; RESP 16
[2022-02-23 15:34] VITALS: TEMP 98.4
== END 2022-02-23 14:46 | disposition home or self-care (01) ==
LOC: JASU-ENDO 04:10
PROVIDERS: ATTEND Internal Medicine Gastroenterology
PROC: 06LY7CC Occlusion of Hemorrhoidal Plexus with Extraluminal Device, Via Natural or Artificial Opening (ICD-10-PCS; 2022-02-23)
PROC: 0DJD8ZZ Inspection of Lower Intestinal Tract, Via Natural or Artificial Opening Endoscopic (ICD-10-PCS; principal; 2022-02-23 11:00)
DX: K64.3 Fourth degree hemorrhoids (principal); K57.30 Diverticulosis of large intestine without perforation or abscess without bleeding; K62.3 Rectal prolapse
CPT/HCPCS: 81025

== ENCOUNTER 2023-11-06 10:48 | Emergency (ER) | payer OTHER ==
[2023-11-06 11:01] VITALS: BP 100/54; PULSE 64; RESP 18; TEMP 98.6; BMI 17.5
[2023-11-06] MEDS ORDERED: diazePAM 5 MG TABLET ONE (11:35)
[2023-11-06] MEDS ORDERED: KETOROLAC TROMETHAMINE 30 MG/1 ML VIAL ONE (11:36)
[2023-11-06] MEDS: KETOROLAC TROMETHAMINE 30 MG/1 ML VIAL IM ONE (11:43)
[2023-11-06] MEDS: diazePAM 5 MG TABLET PO ONE (11:43)
== END 2023-11-06 18:16 | disposition home or self-care (01) ==
LOC: JERFT 10:48
PROC: 3E0233Z Introduction of Anti-inflammatory into Muscle, Percutaneous Approach (ICD-10-PCS; principal; 2023-11-06)
DX: M54.12 Radiculopathy, cervical region (principal); M25.511 Pain in right shoulder; X50.1XXA Overexertion from prolonged static or awkward postures, initial encounter
CPT/HCPCS: 72125-TC; 72141-TC; 96372; 99284-25

== ENCOUNTER 2024-01-05 10:09 | Emergency (ER) | payer OTHER ==
[2024-01-05 10:19] VITALS: BP 96/55; PULSE 89; RESP 18; TEMP 98.8; BMI 18.7
[2024-01-05] MEDS ORDERED: LIDOCAINE 4% PATCH TP ONE ×2 (11:00→11:03)
[2024-01-05] MEDS: LIDOCAINE 4% PATCH TP ONE (11:05)
[2024-01-05 12:54] LABS: HCG,QUALITATIVE URINE Negative
[2024-01-05 13:02] LABS: EPI CELLS 5 /uL (0-25.1); HYALINE CASTS 0 /uL (0-3.1); PH,URINE 7.5 (5.0-8.0); URINE APPEARANCE CLEAR; URINE BACTERIA 52 /uL (0-1359); URINE BILIRUBIN NEGATIVE (NEGATIVE); URINE COLOR YELLOW; URINE GLUCOSE (UA) NEGATIVE (NEGATIVE); URINE KETONE NEGATIVE (NEGATIVE); URINE LEUK ESTERASE NEGATIVE (NEGATIVE); URINE NITRITE NEGATIVE (NEGATIVE); URINE PROTEIN NEGATIVE (NEGATIVE); URINE RBC 24 /uL (0-23.9); URINE UROBILINOGEN 0.2 mg/dL (0.2-1.0); URINE WBC 2 /uL (0-25.8)
[2024-01-05 14:01] LABS: HIV INTERPRETATION NEGATIVE (NEGATIVE)
[2024-01-05] MEDS ORDERED: LIDOCAINE PATCH REMOVAL MC ONE (22:00)
== END 2024-01-05 13:45 | disposition home or self-care (01) ==
LOC: JERFT 10:09
DX: M62.830 Muscle spasm of back (principal); M54.14 Radiculopathy, thoracic region; R35.0 Frequency of micturition
CPT/HCPCS: 36415; 72070-TC-FY; 81003; 84703; 86803; 87389; 99284-25